=== PATIENT | male | born 1985 | race Caucasian/White ===

== ENCOUNTER 2016-12-25 08:31 | Emergency (ER) | payer OTHER ==
[2016-12-25 10:24] LABS: BUN/CREATININE RATIO 6 (0-10)
[2016-12-25 10:32] LABS: HEMOGLOBIN 14.3 gm/dl (14.0-17.5); RED BLOOD COUNT 4.85 M/UL (4.20-5.50); WHITE BLOOD COUNT 15.5 K/UL (4.5-11.0)
== END 2016-12-25 12:00 | disposition home or self-care (01) ==
LOC: ER1 08:31
PROVIDERS: Physician Assistant
DX: L02.416 Cutaneous abscess of left lower limb (principal); L03.116 Cellulitis of left lower limb; F17.210 Nicotine dependence, cigarettes, uncomplicated
CPT/HCPCS: 36415; 80053; 85025; 87040; 87070; 87077; 87186; 87205; 96374; 99283; J0875; J7070